=== PATIENT | male | born 1960 | race African-American/Black ===

== ENCOUNTER 2018-10-17 12:48 | Emergency (ER) | payer OTHER, MEDICAID ==
[~2018-10-17] VITALS: Ht 200.7 cm; Wt 108.9 kg
[~2018-10-17 12:48] MED LIST: ALLERGY EYE5 ML OP; AMARYL4 MG PO; ATORVASTATIN CA40 MG; CATAPRES0.2 MG PO; CIALIS20 MG PO; CLONIDINE HCL0.2 M2 PO; CYMBALTA60 MG; DIABETIC TOP; DILAUDID 2 MG TA2 MG PO; DILAUDID 4 MG TA4 MG PO; DOLOPHINE HCL5 MG PO; FLEXERIL PO; FLOMAX PO; FLOMAX0.4 MG; FLONASE NASAL; LISINOPRIL40 MG PO; MEDROLDOSEPACK PO; METFORMIN PO; METHADONE HCL 110 M1 PO; MINIPRIN81 MG PO; MS CONTIN15 MG PO; MUCINEX600 MG PO; NORCO 5-325 TA1 EAC1 PO; OXYCODONE HCL15 MG PO; PERCOCET 5-3251 EACH PO; RELAFEN750 MG PO; ROBAXIN 750 MG750 M1 PO; STOOL SOFTENER1 EAC2 PO; SUDAFED30 MG PO; VALIUM10 MG PO; VALIUM5 MG PO; VICODIN 5-3001 EACH PO; ZANAFLEX4 M1 PO; ZOCOR40 MG PO; [UNRECOGNIZED DRUG - OTHER] TOP
[2018-10-17 13:37] LABS: URINE BILIRUBIN NEGATIVE (Negative); URINE BLOOD NEGATIVE (Negative); URINE CLARITY CLEAR; URINE COLOR YELLOW; URINE GLUCOSE-RANDOM NEGATIVE (Negative); URINE KETONES NEGATIVE (Negative); URINE LEUKOCYTES-REFLEX NEGATIVE (Negative); URINE NITRITE-REFLEX NEGATIVE (Negative); URINE PROTEIN NEGATIVE (Negative); URINE SPECIFIC GRAVITY 1.025 (1.005-1.030); URINE UROBILINOGEN 0.2 E.U./dl (0.2-1.0)
[2018-10-17] MEDS ORDERED: CEFIXIME400 MG PO (13:42)
[2018-10-17] MEDS ORDERED: DOXYCYCLINE 10100 MG PO (13:42)
[2018-10-17 13:54] VITALS: BP 142/89
== END 2018-10-17 13:56 | disposition home or self-care (01) ==
LOC: M.ERS 12:48
PROVIDERS: Emergency Medicine
DX: N34.2 Other urethritis (principal); I10 Essential (primary) hypertension; E11.9 Type 2 diabetes mellitus without complications; M19.90 Unspecified osteoarthritis, unspecified site; Z98.890 Other specified postprocedural states; Z88.6 Allergy status to analgesic agent; Z88.8 Allergy status to other drugs, medicaments and biological substances

== ENCOUNTER 2018-11-01 20:25 | Emergency (ER) | payer OTHER, MEDICAID ==
[~2018-11-01] VITALS: Ht 200.7 cm; Wt 108.9 kg
[~2018-11-01 20:25] MED LIST changes: +CEFIXIME400 MG PO; +DOXYCYCLINE 10100 MG PO
[2018-11-01] MEDS ORDERED: DOXYCYCLINE 10100 MG PO (20:53)
[2018-11-01] MEDS ORDERED: SUPRAX400 M1 PO (20:53)
[2018-11-01] MEDS ORDERED: FLOMAX0.4 MG PO (21:03)
[2018-11-01 21:21] VITALS: BP 145/80
== END 2018-11-01 21:23 | disposition home or self-care (01) ==
LOC: M.ERS 20:25
DX: Z76.0 Encounter for issue of repeat prescription (principal); I10 Essential (primary) hypertension; M19.90 Unspecified osteoarthritis, unspecified site; E11.9 Type 2 diabetes mellitus without complications; Z98.890 Other specified postprocedural states; Z88.6 Allergy status to analgesic agent; Z88.8 Allergy status to other drugs, medicaments and biological substances; Z88.2 Allergy status to sulfonamides

== ENCOUNTER 2019-10-05 02:28 | Emergency (ER) | payer OTHER, MEDICAID ==
[~2019-10-05] VITALS: Ht 200.7 cm; Wt 127.0 kg
[~2019-10-05 02:28] MED LIST changes: +FLOMAX0.4 MG PO; +SUPRAX400 M1 PO
[2019-10-05 03:07] LABS: ABSOLUTE BASOPHILS 0.1 thou/uL (0.0-0.2); ABSOLUTE EOSINOPHILS 0.1 thou/uL (0.0-0.7); ABSOLUTE MONOCYTES 0.6 thou/uL (0.0-1.2); ABSOLUTE NEUTROPHILS 3.2 thou/uL (1.6-8.1); EOSINOPHILS 1.3 %; HEMATOCRIT 42.1 % (42.0-52.0); HEMOGLOBIN 14.3 gm/dL (14.0-18.0); LYMPHOCYTES 42.7 %; MCH 29.1 pg (26.0-34.0); MCHC 34.1 g/dL (28.0-37.0); MCV 85.4 fL (80.0-100.0); MONOCYTES 9.1 %; MPV 8.3 fl. (7.2-11.1); NUCLEATED RBCS 0 /100WBC; PLATELET COUNT* 237 thou/uL (150-400); POLYS 45.9 %; RBC 4.93 mil/uL (4.50-6.00); RDW-CV 15.5 % (10.5-14.5); WBC 6.9 thou/uL (4.0-11.0)
[2019-10-05 03:21] LABS: URINE BILIRUBIN NEGATIVE (Negative); URINE BLOOD TRACE (Negative); URINE CLARITY CLEAR; URINE COLOR YELLOW; URINE GLUCOSE-RANDOM NEGATIVE (Negative); URINE KETONES NEGATIVE (Negative); URINE LEUKOCYTES-REFLEX NEGATIVE (Negative); URINE NITRITE-REFLEX NEGATIVE (Negative); URINE PROTEIN TRACE (Negative); URINE SPECIFIC GRAVITY >= 1.030 (1.005-1.030); URINE UROBILINOGEN 0.2 E.U./dl (0.2-1.0)
[2019-10-05 03:27] LABS: CALCIUM 9.1 mg/dL (8.5-10.1); CREATININE 1.5 mg/dL (0.6-1.3); POTASSIUM 3.8 mmol/L (3.5-5.1)
[2019-10-05 03:32] LABS: ALBUMIN 3.9 g/dL (3.4-5.0); TOTAL BILIRUBIN 0.4 mg/dL (<0.1-1.0); TOTAL PROTEIN 8.1 g/dL (6.4-8.2)
[2019-10-05] MEDS ORDERED: OXYCODONE HCL 55 MG PO (06:33)
[2019-10-05 06:51] VITALS: BP 139/88
== END 2019-10-05 06:54 | disposition home or self-care (01) ==
LOC: M.ERS 02:28
PROVIDERS: Personal Emergency Response Attendant
DX: R10.31 Right lower quadrant pain (principal); I10 Essential (primary) hypertension; E11.9 Type 2 diabetes mellitus without complications; Z88.8 Allergy status to other drugs, medicaments and biological substances; Z88.6 Allergy status to analgesic agent

== ENCOUNTER 2019-10-18 05:01 | Emergency (ER) | payer OTHER, MEDICAID ==
[~2019-10-18] VITALS: Ht 200.7 cm; Wt 127.0 kg
[~2019-10-18 05:01] MED LIST changes: +OXYCODONE HCL 55 MG PO
[2019-10-18] MEDS ORDERED: LIPITOR10 MG PO (05:08)
[2019-10-18] MEDS ORDERED: NEURONTIN100 MG PO (05:09)
[2019-10-18 05:21] LABS: ABSOLUTE BASOPHILS 0.1 thou/uL (0.0-0.2); ABSOLUTE LYMPHOCYTES 2.4 thou/uL (0.8-5.3); ABSOLUTE MONOCYTES 0.4 thou/uL (0.0-1.2); EOSINOPHILS 0.6 %; HEMATOCRIT 44.4 % (42.0-52.0); LYMPHOCYTES 34.9 %; MCH 28.8 pg (26.0-34.0); MCHC 33.8 g/dL (28.0-37.0); MCV 85.4 fL (80.0-100.0); MONOCYTES 5.2 %; NUCLEATED RBCS 0 /100WBC; PLATELET COUNT* 248 thou/uL (150-400); POLYS 58.3 %; RDW-CV 15.5 % (10.5-14.5); WBC 6.9 thou/uL (4.0-11.0)
[2019-10-18 05:29] LABS: CALCIUM 8.8 mg/dL (8.5-10.1); CREATININE 1.6 mg/dL (0.6-1.3); POTASSIUM 3.9 mmol/L (3.5-5.1)
[2019-10-18 06:22] LABS: URINE BILIRUBIN NEGATIVE (Negative); URINE BLOOD NEGATIVE (Negative); URINE CLARITY CLEAR; URINE COLOR YELLOW; URINE GLUCOSE-RANDOM 2+ (Negative); URINE KETONES NEGATIVE (Negative); URINE LEUKOCYTES-REFLEX NEGATIVE (Negative); URINE NITRITE-REFLEX NEGATIVE (Negative); URINE PROTEIN TRACE (Negative); URINE SPECIFIC GRAVITY >= 1.030 (1.005-1.030); URINE UROBILINOGEN 0.2 E.U./dl (0.2-1.0)
[2019-10-18 06:29] LABS: AMP/METHAMP Negative (Negative); BARBITURATES Negative (Negative); BENZODIAZEPINES Negative (Negative); COCAINE POSITIVE (Negative); METHADONE Negative (Negative); OPIATES POSITIVE (Negative); PCP Negative (Negative); THC Negative (Negative)
[2019-10-18] MEDS ORDERED: ULTRAM 50MG TAB50 MG PO (07:45)
[2019-10-18 08:18] VITALS: BP 161/89
--- NOTE | 2019-10-18 13:07 | EKG ---
[place] [address] ELECTROCARDIOGRAM REPORT Name: MERRILL PALMA Room: 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 10/18/19 1306 0504 0504 Jose Juan Ma MD, [facility] /EPI
== END 2019-10-18 08:19 | disposition home or self-care (01) ==
LOC: M.ERS 05:01
PROVIDERS: Emergency Medicine
DX: R10.31 Right lower quadrant pain (principal); I10 Essential (primary) hypertension; E11.9 Type 2 diabetes mellitus without complications; Z88.6 Allergy status to analgesic agent; Z88.8 Allergy status to other drugs, medicaments and biological substances; Z79.82 Long term (current) use of aspirin; Z79.899 Other long term (current) drug therapy; Z98.890 Other specified postprocedural states

== ENCOUNTER 2020-05-13 01:40 | Emergency (ER) | payer OTHER, MEDICAID ==
[~2020-05-13] VITALS: Ht 200.7 cm; Wt 127.0 kg
[~2020-05-13 01:40] MED LIST changes: +LIPITOR10 MG PO; +NEURONTIN100 MG PO; +ULTRAM 50MG TAB50 MG PO
[2020-05-13 02:05] LABS: ABSOLUTE EOSINOPHILS 0.1 thou/uL (0.0-0.7); ABSOLUTE LYMPHOCYTES 2.2 thou/uL (0.8-5.3); ABSOLUTE MONOCYTES 0.6 thou/uL (0.0-1.2); BASOPHILS 0.8 %; HEMATOCRIT 41.5 % (42.0-52.0); HEMOGLOBIN 13.5 gm/dL (14.0-18.0); LYMPHOCYTES 45.3 %; MCHC 32.6 g/dL (28.0-37.0); MONOCYTES 11.6 %; MPV 7.8 fl. (7.2-11.1); NUCLEATED RBCS 0 /100WBC; PLATELET COUNT* 226 thou/uL (150-400); POLYS 40.3 %; RBC 4.82 mil/uL (4.50-6.00); WBC 4.9 thou/uL (4.0-11.0)
[2020-05-13 02:19] LABS: INR 0.9; PROTIME 9.6 Seconds (9.20-11.50)
[2020-05-13 02:24] LABS: CREATININE 1.5 mg/dL (0.6-1.3)
[2020-05-13 02:35] LABS: ALBUMIN 3.5 g/dL (3.4-5.0); MAGNESIUM 1.9 mg/dL (1.8-2.4); TOTAL BILIRUBIN 0.3 mg/dL (<0.1-1.0); TOTAL PROTEIN 7.7 g/dL (6.4-8.2)
[2020-05-13 02:47] LABS: INFLUENZA A ANTIGEN Negative (Negative); INFLUENZA B ANTIGEN Negative (Negative)
[2020-05-13 03:16] LABS: URINE BILIRUBIN NEGATIVE (Negative); URINE BLOOD NEGATIVE (Negative); URINE CLARITY CLEAR; URINE COLOR YELLOW; URINE GLUCOSE-RANDOM NEGATIVE (Negative); URINE KETONES NEGATIVE (Negative); URINE LEUKOCYTES-REFLEX NEGATIVE (Negative); URINE NITRITE-REFLEX NEGATIVE (Negative); URINE PROTEIN NEGATIVE (Negative); URINE SPECIFIC GRAVITY 1.025 (1.005-1.030); URINE UROBILINOGEN 0.2 E.U./dl (0.2-1.0)
[2020-05-13 03:23] LABS: AMP/METHAMP Negative (Negative); BARBITURATES Negative (Negative); BENZODIAZEPINES Negative (Negative); COCAINE POSITIVE (Negative); METHADONE Negative (Negative); OPIATES Negative (Negative); PCP Negative (Negative); THC POSITIVE (Negative)
[2020-05-13 06:00] VITALS: BP 163/97
--- NOTE | 2020-05-13 09:20 | EKG ---
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 05/13/20 0920 0145 0145 Leonardo Calero MD, [facility] /EPI
== END 2020-05-13 06:01 | disposition home or self-care (01) ==
LOC: M.ERS 01:40
PROVIDERS: Emergency Medicine
DX: M79.18 Myalgia, other site (principal); Z20.822 Contact with and (suspected) exposure to COVID-19; F14.10 Cocaine abuse, uncomplicated; I10 Essential (primary) hypertension; E11.9 Type 2 diabetes mellitus without complications; Z88.6 Allergy status to analgesic agent; Z88.8 Allergy status to other drugs, medicaments and biological substances; Z79.899 Other long term (current) drug therapy

== ENCOUNTER 2020-07-23 18:21 | Emergency (ER) | payer OTHER, MEDICAID ==
[~2020-07-23] VITALS: Ht 200.7 cm; Wt 113.4 kg
[2020-07-23] MEDS ORDERED: METFORMIN HCL500 M3 PO (18:27)
[2020-07-23 18:58] LABS: ABSOLUTE BASOPHILS 0.1 thou/uL (0.0-0.2); ABSOLUTE EOSINOPHILS 0.1 thou/uL (0.0-0.7); ABSOLUTE LYMPHOCYTES 2.5 thou/uL (0.8-5.3); ABSOLUTE MONOCYTES 0.5 thou/uL (0.0-1.2); ABSOLUTE NEUTROPHILS 2.8 thou/uL (1.6-8.1); EOSINOPHILS 0.9 %; HEMATOCRIT 42.3 % (42.0-52.0); HEMOGLOBIN 14.2 gm/dL (14.0-18.0); LYMPHOCYTES 41.8 %; MCH 28.9 pg (26.0-34.0); MCHC 33.5 g/dL (28.0-37.0); MCV 86.3 fL (80.0-100.0); MONOCYTES 9.2 %; MPV 7.7 fl. (7.2-11.1); NUCLEATED RBCS 0 /100WBC; PLATELET COUNT* 220 thou/uL (150-400); POLYS 47.1 %; RDW-CV 15.4 % (10.5-14.5)
[2020-07-23 19:20] LABS: ALBUMIN 3.6 g/dL (3.4-5.0); ALKALINE PHOSPHATASE 79 U/L (46-116); ANION GAP 10 mmol/L (7-16); BUN 17 mg/dL (7-18); CHLORIDE 106 mmol/L (98-107); CO2 25 mmol/L (21-32); CREATININE 1.5 mg/dL (0.6-1.3); GLUCOSE 200 mg/dL (70-99); LIPASE 224 U/L (73-393); MAGNESIUM 1.9 mg/dL (1.8-2.4); NT-PRO BRAIN NAT PEPTIDE 14 pg/mL (<300); SGOT 15 U/L (15-37); SGPT 22 U/L (30-65); SODIUM 141 mmol/L (136-145); TOTAL PROTEIN 7.6 g/dL (6.4-8.2)
[2020-07-23 19:21] LABS: TOTAL BILIRUBIN < 0.1 mg/dL (<0.1-1.0)
[2020-07-23 19:26] LABS: CALCIUM 8.7 mg/dL (8.5-10.1)
[2020-07-23 21:32] VITALS: BP 158/87
--- NOTE | 2020-07-24 11:51 | EKG ---
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1960 Requested By: Carter Grigsby Order Number: [id number] MD: Jose Juan Ma Measurements Intervals [place] Rate: 91 P: 59 PA: 161 QRS: 37 QRSD: 94 T: 117 QT: 337 QTc: 415 Interpretive Statements Sinus rhythm Possible left atrial enlargement Abnormal R-wave progression, early transition Nonspecific T abnormalities, lateral leads Baseline wander in lead(s) I,III,aVR,aVL,V1,V3,V5,V6 Compared to ECG 05/13/2020 01:45:42 T-wave abnormality now present Atrial premature complex(es) no longer present Electronically Signed On 07-24-2020 11:51:07 CDT by Jose Juan Ma [email or web address] <ELECTRONICALLY SIGNED> By: Jose Juan Ma MD, [facility] 07/24/20 1151 1825 1825 Jose Juan Ma MD, [facility] /EPI
== END 2020-07-23 21:34 | disposition home or self-care (01) ==
LOC: M.ERS 18:21
PROVIDERS: Family Medicine
DX: R07.89 Other chest pain (principal); E11.9 Type 2 diabetes mellitus without complications; I10 Essential (primary) hypertension; Z88.8 Allergy status to other drugs, medicaments and biological substances; Z88.6 Allergy status to analgesic agent; Z79.82 Long term (current) use of aspirin; Z79.899 Other long term (current) drug therapy